=== PATIENT | male | born 1925 | race Caucasian/White ===

== ENCOUNTER 2017-03-19 15:42 | Emergency (ER) | payer MEDICARE, BC ==
[~2017-03-19] VITALS: Ht 185.4 cm; Wt 80.0 kg
[~2017-03-19 15:42] MED LIST: ALBUTEROL S2.5 MG/.5 IN; AMOXICILLIN500 MG PO; ASPIRIN EC81 MG PO; AUGMENTIN500TAB PO; BACTRIM DS1 TAB PO; BL ADULT ASA81 MG OR; BL ADULT ASA81 MG PO; CELEXA10 MG OR; CEPHALEXIN500 MG PO; CIPROFLOXACN500 MG PO; COLACE100 MG PO; COUMADIN2.5 MG OR; COUMADIN2.5 MG PO; COUMADIN4 MG PO; COUMADIN5 MG PO; CRANBERRY1 TA1 PO; CRANBERY450 MG PO; DIFLUCAN100 MG PO; DILAUDID 2MG2 MG/TA1 PO; DOCUSATE SOD100 M2 PO; ELIQUIS2.5 MG PO; ENOXAPARIN40 MG/0.1 SC; FLOMAX0.4 M1 PO; FLOMAX0.4 MG OR; FLONASE SPRAY50 MC1; FLUARIX QUADRIV1 INJ IM; FLUZONE SPLT1 M1 IM; LANOXIN0.25 MG OR; LASIX20 MG PO; LEVAQUIN500 MG/100 PO; LISINOPRIL5 MG PO; LOPRESSOR25 MG PO; Levaquin PO; METO25TAB OR; METOPROL TAR25 MG PO; NITROSTAT0.4 MG SL; NORCO1 TA1 PO; PEPCID20 MG OR; PLAVIX75 MG PO; PRAVASTATIN10 MG PO; PROSCAR5 MG OR; PROSCAR5 MG PO; PROTONIX40 MG PO; RANITIDINE150 MG OR; RAPAFLO8 MG PO; TAMSULOSIN HCL0.4 MG; TYLENOL325 MG PO; VITAMIN D50000 UN1 PO; WARFARIN4 MG PO; ZESTRIL5 MG PO; ZYRTEC10 M2; [UNRECOGNIZED DRUG - CODE] PO
[2017-03-19] MEDS ORDERED: CEPHALEXIN500 MG PO (15:55)
[2017-03-19 16:44] LABS: HEMATOCRIT 35.1 % (39.0-50.0); HEMOGLOBIN 11.4 g/dl (14.0-18.0); IMMATURE GRANULOCYTES 1.8 % (0.0-1.0); MEAN CELL VOLUME 91.6 fL CALC (80.0-100.0); MEAN CORPUSCULAR HGB 29.8 pG CALC (26.0-32.0); MEAN CORPUSCULAR HGB CONC 32.5 g/L CALC (32.0-36.0); NEUT# 17.54 thou/uL (1.82-7.42); RED BLOOD COUNT 3.83 mill/uL (4.70-6.10); RED CELL DISTRI WIDTH 13.8 % (11.5-15.5)
[2017-03-19 16:45] LABS: URINE BILIRUBIN - DIPSTICK NEGATIVE (NEGATIVE); URINE BLOOD DIPSTICK LARGE (NEGATIVE); URINE COLOR YELLOW; URINE GLUCOSE - DIPSTICK NEGATIVE (NEGATIVE); URINE KETONE NEGATIVE (NEGATIVE); URINE PH 5.5 (4.5-8.0); URINE PROTEIN - DIPSTICK NEGATIVE (NEG-TRACE); URINE SPECIFIC GRAVITY 1.025; URINE UROBILINOGEN - DIPSTICK 0.2 E.U./dL (0.2)
[2017-03-19 16:51] LABS: URINE CLARITY HAZY; URINE LEUK ESTERASE SMALL (NEGATIVE); URINE NITRITE - DIPSTICK POSITIVE (Negative)
[2017-03-19 17:04] LABS: ALBUMIN 3.9 g/dL (3.2-5.0); ALKALINE PHOSPHATASE 100 u/l (38-126); ANION GAP 19 (6-22 (CALC)); BILIRUBIN, TOTAL 0.5 mg/dL (0.0-1.4); BUN 27 mg/dL (8-23); BUN/CREATININE RATIO 26 (12-20 (CALC)); CALCIUM 9.5 mg/dL (8.4-10.2); CARBON DIOXIDE 20 mmol/l (22-30); CHLORIDE 104 mmol/l (95-108); GFR > 60 ML/MIN (>=60 (CALC)); GFR FOR AFR.AMER. > 60 ML/MIN (>=60 (CALC)); GLUCOSE 129 mg/dL (82-115); POTASSIUM 4.7 mmol/l (3.5-5.1); SGOT/AST 21 u/l (19-48); SGPT/ALT 21 u/l (11-66); SODIUM 139 mmol/l (137-146); TOTAL PROTEIN 6.9 g/dL (6.3-8.2)
[2017-03-19 17:05] LABS: URINE BACTERIA FEW hpf; URINE WBC 20-50 WBC/hpf (0-5)
[2017-03-19 18:20] LABS: INFLUENZA A NONE DETECTED (NONE DETECT); INFLUENZA B NONE DETECTED (NONE DETECT)
[2017-03-19 19:05] VITALS: BP 132/77
== END 2017-03-19 19:18 | disposition short-term general hospital (02) ==
LOC: ED 15:42
PROVIDERS: Emergency Medicine
DX: S72.301A Unspecified fracture of shaft of right femur, initial encounter for closed fracture (principal); Z96.641 Presence of right artificial hip joint; N39.0 Urinary tract infection, site not specified; B96.5 Pseudomonas (aeruginosa) (mallei) (pseudomallei) as the cause of diseases classified elsewhere; R50.9 Fever, unspecified; W01.0XXA Fall on same level from slipping, tripping and stumbling without subsequent striking against object, initial encounter; Y93.01 Activity, walking, marching and hiking; Y92.129 Unspecified place in nursing home as the place of occurrence of the external cause; I48.91 Unspecified atrial fibrillation